=== PATIENT | male | born 1990 | race Caucasian/White ===

== ENCOUNTER 2019-03-20 08:35 | Emergency (ER) | payer SELFPAY ==
[2019-03-20 09:05] VITALS: O2SAT 98
[2019-03-20] MEDS ORDERED: Sodium Chloride 0.9% 1000 ML 1,000 ML IV SCH (09:15)
[2019-03-20 09:22] LABS: BASOPHIL % 0.1 % (0.0-0.4); Basophil (Absolute #) 0.01 (0-0.4); Eosinophil % 1.1 % (0.00-5.0); Eosinophil (Absolute #) 0.09 (0-0.5); Granulocyte Absolute (ANC) 4.28 (1.4-6.9); Granulocytes % 54.1 % (36.0-66.0); Hemoglobin 15.1 gm/dl (12.5-18.0); Lymphocyte (Absolute #) 2.71 (1.0-4.6); Lymphocytes % 34.3 % (24.0-44.0); Mean Cell Volume 93.2 fl (78-100); Mean Corpuscular Hemoglobin 31.3 pg (26-32); Mean Corpuscular Hgb Concent. 33.6 g/dl (32-36); Mean Platelet Volume 8.9 fl (6-9.5); Monocyte (Absolute #) 0.82 (0.0-1.3); Monocytes % 10.4 % (0.0-12.0); Platelet Count 225 K/mm3 (150-450); Red Blood Count 4.83 M/mm3 (4.1-5.6); Red Cell Distribution Width 13.4 % (11.5-14.0); White Blood Count 7.9 K/mm3 (4.0-10.5)
--- NOTE | 2019-03-20 09:22 | ERPHSYRPT ---
- History of Present Illness Time Seen by Provider: 03/20/19 08:50 Historian: patient Exam Limitations: clinical condition Patient Subjective Stated Complaint: pt states he was driving to [employer] nad began having pain in his abdomen and chest, stopped to get checked out. Triage Nursing Assessment: pt alert and orientedx3, ableto ambulate by self, gait is steady, patient diaphoretic and clammy, skin warm and intact. patietn states feel like water leaking under his skin in his back , states he sometiems blacks out after meth use. Physician History: PATIENT WITH A HISTORY OF METHAMPHETAMINE ABUSE COMPLAINS OF TRANSIENT RIGHT UPPER ABDOMINAL PAIN FOR FEW MINUTES. DENIES NAUSEA, EMESIS, FEVER, CHILLS AND RADIATION OF PAIN TO NECK JAW OR ARMS. ADMITS TO HAVING RIGHT UPPER ABDOMINAL PAIN FOR 2 YEARS. PATIENT HAD SURGERY FOR PRIAPRISM 05/2018 AND HAS PERISISTENT PENILE SWELLING SINCE. DENIES URINARY SYMPTOMS. Timing/Duration: today Activities at Onset: none Abdominal Pain Onset Location: RUQ Pain Radiation: no radiation Severity of Pain-Max: moderate Severity of Pain-Current: none Modifying Factors: Improves With: nothing Associated Symptoms: denies symptoms Previous symptoms: same symptoms as today Allergies/Adverse Reactions: No Known Drug Allergies Allergy (Unverified 03/20/19 08:41) Hx Tetanus, Diphtheria Vaccination/Date Given: (unknown) Hx Influenza Vaccination/Date Given: No Hx Pneumococcal Vaccination/Date Given: No Immunizations Up to Date: (unknown) - Past Medical History Pertinent Past Medical History: Yes Psycho-Social History: Anxiety - Past Surgical History Past Surgical History: Yes Other Surgical History: priapism - Social History Smoking Status: Current every day smoker Drug Use: methamphetamines - Nursing Vital Signs Nursing Vital Signs: Initial Vital Signs Temperature 98.1 F 03/20/19 08:36 Pulse Rate 91 H 03/20/19 08:36 Respiratory Rate 18 03/20/19 08:36 Blood Pressure 153/95 03/20/19 08:36 O2 Sat by Pulse Oximetry 98 03/20/19 08:36 Pain Scale Pain Intensity 7 - Physical Exam General Appearance: no apparent distress, alert Eye Exam: PERRL/EOMI, eyes nml inspection Ears, Nose, Throat Exam: normal ENT inspection, pharynx normal, moist mucous membranes Neck Exam: normal inspection, non-tender, supple, full range of motion Respiratory Exam: normal breath sounds, lungs clear, No respiratory distress Cardiovascular Exam: regular rate/rhythm, normal heart sounds Gastrointestinal/Abdomen Exam: soft, normal bowel sounds, tenderness (RIGHT UPPER QUAD TENDERNESS NO GUARDING), No mass Male Genitalia Exam: other (CIRCUMCISED PENIS, LARGE FIRM SWELLING OVER SHAFT OF PENIS, RIGHT LATERAL ASPECT) Back Exam: normal inspection, normal range of motion, No CVA tenderness, No vertebral tenderness Extremity Exam: normal inspection, normal range of motion, pelvis stable Neurologic Exam: alert, oriented x 3, cooperative, normal mood/affect, nml cerebellar function, sensation nml, No motor deficits Skin Exam: normal color, warm, dry SpO2 Interpretation: normal SpO2: 98 Ordered Tests: Active Orders 24 hr Category Date Time Status IV Insertion STAT Care 03/20/19 09:10 Active Psychiatric Consult STAT Cons 03/20/19 10:14 Active ABDOMEN AND PELVIS W/0 CONTRAS [CT] Stat Exams 03/20/19 09:10 Taken AMYLASE Stat Lab 03/20/19 09:10 Completed CBC W DIFF Stat Lab 03/20/19 09:10 Completed CMP Stat Lab 03/20/19 09:10 Completed ETHYL ALCOHOL Stat Lab 03/20/19 10:12 Completed LIPASE Stat Lab 03/20/19 09:10 Completed TROPONIN Q3H Lab 03/20/19 09:10 Received TROPONIN Q3H Lab 03/20/19 13:15 Ordered TROPONIN Q3H Lab 03/20/19 16:15 Ordered TROPONIN Q3H Lab 03/20/19 19:15 Ordered TROPONIN Q3H Lab 03/20/19 22:15 Ordered UA W/RFX UR CULTURE Stat Lab 03/20/19 09:09 Uncollected Urine Triage Profile Stat Lab 03/20/19 09:09 Uncollected Medication Summary Generic Name Dose Route Start Last Admin Trade Name Freq PRN Reason Stop Dose Admin Sodium Chloride 1,000 mls @ 100 mls/hr 03/20/19 09:15 03/20/19 09:32 Sodium Chloride 0.9% 1000 Ml IV 04/19/19 09:14 100 mls/hr .Q10H CECY Administration Lab/Rad Data: Laboratory Result Diagrams 03/20/19 09:10 03/20/19 09:10 Laboratory Results 03/20/19 03/20/19 03/20/19 Range/Units 10:12 09:10 09:10 WBC 7.9 (4.0-10.5) K/mm3 RBC 4.83 (4.1-5.6) M/mm3 Hgb 15.1 (12.5-18.0) gm/dl Hct 45.0 (42-50) % MCV 93.2 (78-100) fl MCH 31.3 (26-32) pg MCHC 33.6 (32-36) g/dl RDW 13.4 (11.5-14.0) % Plt Count 225 (150-450) K/mm3 MPV 8.9 (6-9.5) fl Gran % 54.1 (36.0-66.0) % Eos # (Auto) 0.09 (0-0.5) Absolute Lymphs (auto) 2.71 (1.0-4.6) Absolute Monos (auto) 0.82 (0.0-1.3) Lymphocytes % 34.3 (24.0-44.0) % Monocytes % 10.4 (0.0-12.0) % Eosinophils % 1.1 (0.00-5.0) % Basophils % 0.1 (0.0-0.4) % Absolute Granulocytes 4.28 (1.4-6.9) Basophils # 0.01 (0-0.4) Sodium 139 (137-145) mmol/L Potassium 4.7 (3.5-5.1) mmol/L Chloride 103 (98-107) mmol/L Carbon Dioxide 29 (22-30) mmol/L Anion Gap 12.1 (5-15) MEQ/L BUN 18 (9-20) mg/dL Creatinine 1.13 (0.66-1.25) mg/dL Estimated GFR > 60.0 ML/MIN Glucose 101 (74-106) mg/dL Calcium 9.5 (8.4-10.2) mg/dL Total Bilirubin 0.30 (0.2-1.3) mg/dL AST 27 (17-59) U/L ALT 23 (0-50) U/L Alkaline Phosphatase 62 (38-126) U/L Serum Total Protein 7.4 (6.3-8.2) g/dL Albumin 4.1 (3.5-5.0) g/dL Amylase 74 (30-110) U/L Lipase 56 (23-300) U/L Ethyl Alcohol < 10 (0-10) mg/dL - Progress Progress Note: 03/20/19 11:17 PATIENT REFUSED TO WAIT ON ABDOMNAL CT RESULTS. DISCUSSED WITH PATIENT CONCERNING PARANOID THOUGHTS. DENIES SUICIDAL OR HOMOCIDAL THOUGHTS. PATIENT SIGN OUT AMA, RISK VS BENEFITS DISCUSSED WITH PATIENT. - Departure Departure Disposition: AMA Clinical Impression: SUBSTANCE ABUSE, ABDOMINAL PAIN Condition: Stable Critical Care Time: No Additional Instructions: FOLLOWUP WITH YOUR PRIMARY CARE PROVIDER OR RETURN TO EMERGENCY ROOM.
[2019-03-20] MEDS ORDERED: Sodium Chloride 0.9% 1000 ML 1,000 ML ONE (09:28)
[2019-03-20 09:35] LABS: ALBUMIN 4.1 g/dL (3.5-5.0); ALKALINE PHOSPHATASE 62 U/L (38-126); AMYLASE 74 U/L (30-110); ANION GAP 12.1 MEQ/L (5-15); BLOOD UREA NITROGEN 18 mg/dL (9-20); CHLORIDE 103 mmol/L (98-107); Calcium 9.5 mg/dL (8.4-10.2); Carbon Dioxide 29 mmol/L (22-30); Creatinine 1 1.13 mg/dL (0.66-1.25); Glucose 101 mg/dL (74-106); Potassium 4.7 mmol/L (3.5-5.1); SGOT/AST 27 U/L (17-59); SGPT/ALT 23 U/L (0-50); SODIUM 139 mmol/L (137-145); Total Protein 7.4 g/dL (6.3-8.2)
--- NOTE | 2019-03-20 11:50 | XRAY ---
Indication: Right abdomen pain. Multiple contiguous axial images obtained through the abdomen and pelvis without contrast as ordered. Comparison: None Study is degraded by respiration artifact. Lung bases are grossly clear. Heart is not enlarged. Noncontrasted stomach and bowel loops appear nonobstructed. Normal appendix. Mild diffuse scattered colonic fecal debris, greatest in the right hemicolon. No free fluid/air. Gallbladder not seen either contracted or surgically absent. Hepatic/splenic calcified granulomas. Remaining liver, pancreas, spleen, adrenal glands, kidneys, ureters, bladder, and aorta appear unremarkable for noncontrast exam. Osseous structures intact. Impression: 1. Respiration artifact. 2. Mild fecal stasis and evidence for old granulomatous disease. 3. Remaining CT abdomen/pelvis without contrast exam is negative. CTDI 28.13
[2019-03-20 12:19] VITALS: BP 149/96; PULSE 81
== END 2019-03-20 10:50 | disposition left against medical advice (07) ==
LOC: ED 08:35
DX: R10.11 Right upper quadrant pain (principal)
CPT/HCPCS: 36415; 74176; 80053; 80307; 82150; 83690; 84484; 85025; 96360; 99284; G0480